=== PATIENT | male | born 1980 | race Hispanic/Latino ===

== ENCOUNTER 2017-01-11 11:23 | Emergency (ER) | payer OTHER ==
[2017-01-11 11:40] VITALS: BP 126/88
== END 2017-01-11 11:40 | disposition left against medical advice (07) ==
LOC: ED 11:23
DX: R21 Rash and other nonspecific skin eruption (principal); F17.200 Nicotine dependence, unspecified, uncomplicated; F12.90 Cannabis use, unspecified, uncomplicated; Z53.21 Procedure and treatment not carried out due to patient leaving prior to being seen by health care provider